=== PATIENT | female | born 1970 | race Caucasian/White ===

== ENCOUNTER 2017-07-04 11:57 | Emergency (ER) | payer MEDICAID ==
[~2017-07-04] VITALS: Ht 167.6 cm; Wt 91.2 kg
[~2017-07-04 11:57] MED LIST: ATARAX PO; BUPR150T6 PO; BUTA1CAP57 PO; CLIN150C14 PO; CYCL-259 PO; FLUO20CA19 PO; GABA300C10 PO; IBUP200T64 PO; LEVO100T5 PO; MELO15TA24 PO; MODA200T27 PO; NITR0.4T SL; NORT10CA PO; OMEP-110 PO; PROM25TA10 PO; PROP20TA PO
[2017-07-04] MEDS ORDERED: DIPHENHYDRAMINE 50 MG/ML, 1ML IVPush ONE (12:30)
[2017-07-04] MEDS ORDERED: SODIUM CHLORIDE FLUSH 10ML SYR IVF ONE (12:30)
[2017-07-04] MEDS ORDERED: PROCHLORPERAZINE 5 MG/ML, 2ML IVPush ONE (12:30)
[2017-07-04] MEDS ORDERED: SODIUM CHLORIDE 0.9% 1,000ML IVBOLUS ONE (12:30)
[2017-07-04 12:48] LABS: HEMATOCRIT 34.2 % (34.6-47.8); HEMOGLOBIN 11.6 g/dL (11.7-16.4); WHITE BLOOD COUNT 7.9 x10^3/uL (3.4-10)
[2017-07-04 12:58] LABS: BLOOD UREA NITROGEN 4 mg/dL (7-18)
[2017-07-04] MEDS ORDERED: DIPHENHYDRAMINE 50 MG/ML, 1ML ONE (13:33)
[2017-07-04] MEDS ORDERED: PROCHLORPERAZINE 5 MG/ML, 2ML ONE (13:33)
[2017-07-04 14:59] VITALS: BP 131/78
== END 2017-07-04 15:03 | disposition home or self-care (01) ==
LOC: ED 14:40
DX: S63.502A Unspecified sprain of left wrist, initial encounter (principal); S09.90XA Unspecified injury of head, initial encounter; W10.9XXA Fall (on) (from) unspecified stairs and steps, initial encounter; Y93.01 Activity, walking, marching and hiking; Y92.89 Other specified places as the place of occurrence of the external cause; Y99.8 Other external cause status
CPT/HCPCS: 29125; 36415; 70450; 73110; 80048; 82040; 85025; 96361; 96374; 96375; 99285; J0780; J1200; J7030